=== PATIENT | female | born 1990 | race Two or more races ===

== ENCOUNTER 2017-10-08 05:56 | Inpatient (IN) | payer SELFPAY ==
[~2017-10-08 05:56] MED LIST: L&D EPIDURAL CASSETTE 100 ML EP
[2017-10-08] MEDS ORDERED: BUTORPHANOL 2 MG/ML VIAL. IV (06:00)
[2017-10-08] MEDS ORDERED: OXYTOCIN 30 UNIT/500 ML PREMIX 500 ML IV ×2 (06:00)
[2017-10-08] MEDS ORDERED: LIDOCAINE 1% PF 30 ML VIAL. INJ (06:00)
[2017-10-08] MEDS ORDERED: 0.9 % SODIUM CHLORIDE 10 ML DISP.SYRIN. IV (06:00)
[2017-10-08] MEDS ORDERED: MAG HYDROX/ALUMINUM HYD/SIMETH 30 ML ORAL.SUSP PO (06:00)
[2017-10-08] MEDS ORDERED: fentaNYL PF VIAL 100 MCG/2 ML VIAL IV (06:00)
[2017-10-08] MEDS ORDERED: TERBUTALINE 1 MG/ML VIAL. SQ (06:00)
[2017-10-08] MEDS ORDERED: ONDANSETRON PF 4 MG/2 ML VIAL. IV (06:00)
[2017-10-08] MEDS: IV RINGERS,LACTATED 1000ML 1,000 ML IV ×3 (06:38→20:39)
[2017-10-08 06:47] LABS: ADD MAN DIFF? NO
[2017-10-08 06:55] LABS: BASO % 1 % (0-3); EOS % 1 % (0-3); HEMATOCRIT 32.1 % (36.0-47.0); HEMOGLOBIN 10.4 g/dL (12.0-15.5); LYMPH # 2.4 x10^3/uL (1.0-4.8); LYMPH % 30 % (24-48); MEAN CORPUSCULAR HEMOGLOBIN 26 pg (25-35); MEAN CORPUSCULAR HGB CONC 32 g/dL (31-37); MEAN CORPUSCULAR VOLUME 81 fL (79-100); MONO # 0.4 x10^3/uL (0.0-1.1); MONO % 5 % (0-9); NEUT # 5.1 x10^3uL (1.8-7.7); NEUT % 64 % (31-73); PLATELET COUNT 279 x10^3/uL (140-400); RED BLOOD COUNT 3.95 x10^6/uL (3.50-5.40); RED CELL DISTRIBUTION WIDTH 15.9 % (11.5-14.5)
[2017-10-08] MEDS ORDERED: OXYTOCIN PREMIX 30 UNIT/500 ML BAG. IV (07:00)
[2017-10-08] MEDS: AMPICILLIN SODIUM IV Push 2 GM VIAL. IVP (07:51)
[2017-10-08] MEDS ORDERED: AMPICILLIN SODIUM 1 GM in IV NORMAL SALINE 50ML 50 ML IV (08:00)
[2017-10-08] MEDS ORDERED: AMPICILLIN SODIUM 2 GM in IV NORMAL SALINE 100ML 100 ML IV (08:00)
[2017-10-08 08:10] LABS: BILIRUBIN,URINE NEGATIVE (NEG); CLARITY,URINE CLEAR; COLOR,URINE YELLOW; GLUCOSE,URINE NEGATIVE (NEG); NITRITE,URINE NEGATIVE (NEG); PH,URINE 6.5; PROTEIN,URINE NEGATIVE (NEG-TRACE)
[2017-10-08 08:28] LABS: BACTERIA,URINE MANY /HPF (0-FEW); SQUAMOUS EPITHELIAL CELL,UR MANY /LPF
[2017-10-08 08:29] LABS: RBC,URINE OCC /HPF (0-2); WBC,URINE 20-40 /HPF (0-4)
[2017-10-08] MEDS ORDERED: L&D EPIDURAL SYRINGE 50 ML EP ×2 (10:00→11:50)
[2017-10-08] MEDS ORDERED: L&D EPIDURAL 50 ML SYRINGE. EP (12:00)
[2017-10-08] MEDS: AMPICILLIN SODIUM IV Push 1 GM VIAL. IVP ×3 (12:27→20:00)
[2017-10-08] MEDS: IBUPROFEN 800 MG TABLET. PO (14:35)
[2017-10-08] MEDS: ACETAMINOPHEN 325 MG TABLET. PO (20:09)
[2017-10-09] MEDS: IBUPROFEN 800 MG TABLET. PO ×2 (05:25→21:35)
[2017-10-09] MEDS ORDERED: LIDOCAINE 1% PF 2 ML VIAL. ID (07:00)
[2017-10-09] MEDS: IV RINGERS,LACTATED 1000ML 1,000 ML IV ×2 (07:00→16:57)
[2017-10-09] MEDS ORDERED: ONDANSETRON PF 4 MG/2 ML VIAL. IV (07:00)
[2017-10-09] MEDS ORDERED: PROCHLORPERAZINE 10 MG/2 ML VIAL. IV (07:00)
[2017-10-09] MEDS ORDERED: fentaNYL PF VIAL 100 MCG/2 ML VIAL IV (07:00)
[2017-10-09 07:36] LABS: RPR Non Reactive (Non Reactive)
[2017-10-09] MEDS ORDERED: PROPOFOL 20 ML IV ×2 (16:45→18:26)
[2017-10-09] MEDS ORDERED: ROCURONIUM 50 MG/5 ML VIAL. (16:45)
[2017-10-09] MEDS ORDERED: fentaNYL PF VIAL 100 MCG/2 ML VIAL ×2 (16:45→18:44)
[2017-10-09] MEDS ORDERED: ONDANSETRON PF 4 MG/2 ML VIAL. (16:45)
[2017-10-09] MEDS ORDERED: DEXAMETHASONE SOD PHOS 20 MG/5 ML VIAL. (16:45)
[2017-10-09] MEDS ORDERED: METOCLOPRAMIDE HCL 10 MG/2 ML VIAL. (18:22)
[2017-10-09] MEDS ORDERED: SEVOFLURANE 31 TO 60 MINUTES. IH (18:22)
[2017-10-09] MEDS ORDERED: FAMOTIDINE 20 MG/2 ML VIAL (18:22)
[2017-10-09] MEDS ORDERED: KETOROLAC 30 MG/ML INJ FOR OR. INJ (18:22)
[2017-10-09] MEDS: BUPIVACAINE-EPI 0.25%-1:200000 50 ML VIAL. (18:25)
[2017-10-09] MEDS: fentaNYL PF VIAL 100 MCG/2 ML VIAL IV ×4 (19:07→19:31)
[2017-10-09] MEDS: MORPHINE SULFATE 4 MG/ML DISP.SYRIN. IV (19:44)
[2017-10-09] MEDS: ACETAMINOPHEN 325 MG TABLET. PO (21:35)
[2017-10-10] MEDS: IBUPROFEN 800 MG TABLET. PO ×2 (04:52→12:59)
== END 2017-10-10 16:30 | disposition home or self-care (01) | DRG 767 ==
LOC: 3 SO LND 05:56
PROC: 0UB70ZZ Excision of Bilateral Fallopian Tubes, Open Approach (ICD-10-PCS; 2017-10-09 17:00)
PROC: 10E0XZZ Delivery of Products of Conception, External Approach (ICD-10-PCS; principal; 2017-10-09 18:11)
PROC: 3E033VJ Introduction of Other Hormone into Peripheral Vein, Percutaneous Approach (ICD-10-PCS; 2017-10-09 18:11)
PROC: 00HU33Z Insertion of Infusion Device into Spinal Canal, Percutaneous Approach (ICD-10-PCS; 2017-10-09 18:11)
PROC: 3E0R3BZ Introduction of Anesthetic Agent into Spinal Canal, Percutaneous Approach (ICD-10-PCS; 2017-10-09 18:11)
DX: O77.0 Labor and delivery complicated by meconium in amniotic fluid (principal); Z30.2 Encounter for sterilization; Z37.0 Single live birth; Z3A.00 Weeks of gestation of pregnancy not specified
CPT/HCPCS: 36415; 81001; 85025; 86593; 86850; 86900; 86901; 87086; J0290; J1100; J1885; J2270; J2405; J2590; J2704; J2765; J3010; J7120; S0028